=== PATIENT | female | born 1990 | race Two or more races ===

== ENCOUNTER → 2023-05-15 | Outpatient (REF) | payer BC | LOC: M PLALAB 15:53 | PROVIDERS: ATTEND Advanced Practice Midwife | DX: Z12.4 Encounter for screening for malignant neoplasm of cervix (principal) | CPT/HCPCS: 87624; G0123 ==

== ENCOUNTER → 2024-03-24 | Outpatient (REF) | payer OTHER | LOC: M SFHCWAGY 16:47 | PROVIDERS: ATTEND Nurse Practitioner Family | DX: R35.0 Frequency of micturition (principal) ==

== ENCOUNTER → 2024-07-14 | Outpatient (REF) | payer OTHER | LOC: M SFHCWAGY 09:55 | PROVIDERS: ATTEND Nurse Practitioner Family | DX: N73.9 Female pelvic inflammatory disease, unspecified (principal) ==

== ENCOUNTER → 2025-06-11 | Outpatient (REF) | payer OTHER ==
[2025-06-11 18:07] LABS: AMORPHOUS SEDIMENT SMALL (NEGATIVE); APPEARANCE, URINE TURBID (CLEAR); BACTERIA, URINE AUTO NEGATIVE (NEGATIVE); BILIRUBIN, URINE AUTO NEGATIVE (NEGATIVE); BLOOD, URINE BLOOD 1+ (NEGATIVE); GLUCOSE, URINE (UA) AUTO NEGATIVE (NEGATIVE); KETONE, URINE AUTO NEGATIVE (NEGATIVE); LEUKOCYTE ESTERASE, URINE AUTO 3+ (NEGATIVE); NITRITE, URINE AUTO NEGATIVE (NEGATIVE); PROTEIN, URINE AUTO 2+ mg/dL (NEGATIVE); RBC, URINE AUTO 32 /HPF (0-3); SPECIFIC GRAVITY URINE AUTO 1.019 (1.002-1.035); SQUAMOUS EPITHELIAL CELL UR AU 12 /HPF (0-6); UROBILINOGEN, URINE AUTO 0.2 mg/dL (0.0-2.0); WBC, URINE AUTO 182 /HPF (0-3)
== END ==
LOC: M LAB REF 17:22
PROVIDERS: ATTEND Physician Assistant Medical
DX: N39.0 Urinary tract infection, site not specified (principal)

== ENCOUNTER → 2025-07-18 | Outpatient (CLI) | payer OTHER ==
[2025-07-18 16:16] LABS: LUTEINIZING HORMONE 3.7 mIU/ML
[2025-07-18 16:17] LABS: PROLACTIN 9.5 NG/ML
[2025-07-18 16:18] LABS: ESTRADIOL 34.5 PG/ML; FREE T4 1.17 NG/DL (0.89-1.76)
[2025-07-19 21:02] LABS: DEHYDROEPIANDROSTERONE SULFATE 275 mcg/dL (19-237)
== END ==
LOC: M PLALAB 09:56
PROVIDERS: ATTEND Nurse Practitioner Family
DX: N97.9 Female infertility, unspecified (principal)

== ENCOUNTER → 2025-07-19 | Outpatient (CLI) | payer OTHER | LOC: M RAD 14:41 | PROVIDERS: ATTEND Nurse Practitioner Family | DX: N97.9 Female infertility, unspecified (principal) ==

== ENCOUNTER → 2025-08-19 | Outpatient (CLI) | payer OTHER | LOC: M WHC 06:38 | PROVIDERS: ATTEND Nurse Practitioner Family | DX: R10.9 Unspecified abdominal pain (principal) ==

== ENCOUNTER → 2025-08-30 | Outpatient (CLI) | payer OTHER ==
[~2025-08-30] MED LIST: ISOVUE-370 76% 100 ML VIAL As Ordered ONE; SILVER NITRATE APPLICATOR (1 = QTY 10) As Ordered ONE
== END ==
LOC: M RADPRO 11:51
PROVIDERS: ATTEND Nurse Practitioner Family
DX: N97.9 Female infertility, unspecified (principal)
CPT/HCPCS: 58340; 74740; Q9967